=== PATIENT | female | born 1940 | race Caucasian/White ===

== ENCOUNTER → 2023-09-20 09:05 | Outpatient (REF) | payer OTHER, SELFPAY | LOC: HWWDC 09:05 | PROVIDERS: ATTENDING PHYSICIAN Internal Medicine | DX: Z12.31 Encounter for screening mammogram for malignant neoplasm of breast (principal) | CPT/HCPCS: 77063; 77067 ==

== ENCOUNTER → 2023-09-23 08:43 | Outpatient (REF) | payer OTHER, SELFPAY | LOC: WDC 08:43 | PROVIDERS: ATTENDING PHYSICIAN Internal Medicine | DX: R92.8 Other abnormal and inconclusive findings on diagnostic imaging of breast (principal) | CPT/HCPCS: 76642 ==